=== PATIENT | male | born 1970 | race Caucasian/White ===

== ENCOUNTER 2017-07-22 04:12 | Emergency (ER) | payer SELFPAY ==
[2017-07-22] MEDS ORDERED: SULFAMETHOXAZOLE/TRIMETHOPRIM 800-160 MG TABLET PO ONE (05:35)
--- NOTE | 2017-07-22 05:37 | ER Document Report ---
HPI - HPI Patient complains to provider of: Bug bite Pain Level: 1 Context: Patient is a 47-year-old male presents emergency department complaining of a bug bite on left anterior thigh that is noticed over the past 3 days. Patient states that after he got off work today there was redness with mild streaking up his thigh. He denies any pain with movement but admits to tenderness to touch. States it is warm and red and has not drained any pus. States that he did pick at it a couple of days ago to try to drain it but nothing came out. States he has been doing warm compresses as often as he can throughout the day. Admits to allergy to amoxicillin. Denies any previous history of abscess or MRSA Past Medical History - Social History Smoking Status: Current Every Day Smoker Family History: Reviewed & Not Pertinent - Immunizations Hx Diphtheria, Pertussis, Tetanus Vaccination: Yes Vertical Provider Document - CONSTITUTIONAL Agree With Documented VS: Yes Notes: PHYSICAL EXAM GENERAL: Alert, interacts well. LUNGS: Clear to auscultation bilaterally, no wheezes, rales, or rhonchi. No respiratory distress. HEART: Regular rate and rhythm. No murmurs, gallops, or rubs. ABDOMEN: Soft, nondistended, nontender. No guarding, rebound, or rigidity.. Bowel sounds present in all 4 quadrants. EXTREMITIES: Moves all 4 extremities spontaneously. No edema, radial and dorsalis pedis pulses 2/4 bilaterally. No cyanosis. NEUROLOGICAL: Alert and oriented x4. Normal speech. PSYCH: Normal affect, normal mood. SKIN: Warm, dry, normal turgor. Erythematous area with central eschar noted on the left anterior thigh with surrounding induration less than 1 cm with surrounding erythema of approximately 8 cm in diameter with mild streaking measuring less than 2 cm of the medial thigh.Induration, purulent drainage, fluctuance. - INFECTION CONTROL TRAVEL OUTSIDE OF THE [place] IN LAST 30 DAYS: No Course - Re-evaluation Re-evalutation: 07/22/17 05:32 Patient is a 47-year-old male who is hemodynamically stable, no acute distress and afebrile. Presentation is consistent with a superficial cellulitis. Will initiate patient on p.o. antibiotics, site was marked using a skin marker, patient given strict return precautions otherwise to follow-up in 2-3 days for wound check. Discharge - Discharge Clinical Impression: Cellulitis Qualifiers: Site of cellulitis: extremity Site of cellulitis of extremity: lower extremity Laterality: left Qualified Code(s): L03.116 - Cellulitis of left lower limb Condition: Good Disposition: HOME, SELF-CARE Additional Instructions: Return to ED in 2-3 days for wound check. CELLULITIS: You have an infection of your skin and underlying soft tissues called cellulitis. This is due to bacteria, which can enter through any break in the skin, or even through an irritated hair follicle. Untreated, cellulitis will usually worsen. Antibiotics are required. Usually, warm packs or warm soaks, and elevation of the infected area are recommended. You should start getting better within 24 to 36 hours. Most infections respond quickly to the right medication. Follow-up care is important, however, to check for abscess (boil) formation, unsuspected foreign body, or resistant infection. If you develop fever, chills, or if the area of infection is becoming rapidly more swollen or painful, call the doctor at once. ANTIBIOTIC THERAPY: You have been given an antibiotic prescription. It's important that you take all the medication, unless instructed otherwise by your physician. Failure to complete the entire course can result in relapse of your condition. Common side effects of antibiotics include nausea, intestinal cramping, or diarrhea. Women may develop vaginal yeast infections, and babies can get yeast (thrush) in the mouth following the use of antibiotics. Contact your physician if you develop significant side effects from this medication. Allergy to this antibiotic can result in hives, wheezing, faintness, or itching. If symptoms of allergy occur, stop the medication and call the doctor. TRIMETHOPRIM-SULFA: You have been given a prescription for trimethoprim-sulfa (TMS, Septra, Bactrim). This is a combination antibiotic of the sulfa class, often used for urinary tract infections, middle ear infections, bronchitis, shigella intestinal infection, and Pneumocystis pneumonia. TMS is usually well-tolerated. Occasional side effects include nausea and decreased appetite. Septra is not recommended for infants less than two months of age. Do not take this medication if you have experienced severe side effects or allergy to sulfa medicine. You should stop this medicine at once and contact your physician if you develop any rash, joint pain, shortness of breath, bruising, or jaundice ( yellow color in the skin), or if you develop any other new or unusual symptoms. FOLLOW-UP CARE: If you have been referred to a physician for follow-up care, call the physician s office for an appointment as you were instructed or within the next two days. If you experience worsening or a significant change in your symptoms, notify the physician immediately or return to the Emergency Department at any time for re-evaluation. Prescriptions: Sulfamethoxazole/Trimethoprim [Bactrim Ds Tablet] 1 each PO BID #10 tablet
== END 2017-07-22 05:50 | disposition home or self-care (01) ==
LOC: ER 04:12
DX: S70.362A Insect bite (nonvenomous), left thigh, initial encounter (principal); L03.116 Cellulitis of left lower limb; W57.XXXA Bitten or stung by nonvenomous insect and other nonvenomous arthropods, initial encounter; Z88.0 Allergy status to penicillin; F17.200 Nicotine dependence, unspecified, uncomplicated
CPT/HCPCS: 99281

== ENCOUNTER 2017-07-29 01:39 | Emergency (ER) | payer SELFPAY ==
[2017-07-29 01:52] VITALS: BP 164/93
--- NOTE | 2017-07-29 03:35 | ER Document Report ---
HPI - HPI Patient complains to provider of: left anterior thigh abscess Onset: Last week Onset/Duration: Persistent Pain Level: 1 Context: 47 yo male with abscess anterior mid left thigh for over a week, finished the antibiotics and the red area has decreased in size but he is out of the antibiotic. No fever. Associated Symptoms: Body/muscle aches Exacerbated by: Denies Relieved by: Denies Similar symptoms previously: Yes Recently seen / treated by doctor: Yes - ROS ROS below otherwise negative: Yes Systems Reviewed and Negative: Yes All other systems reviewed and negative Past Medical History - General Information source: Patient - Social History Smoking Status: Current Every Day Smoker Frequency of alcohol use: None Drug Abuse: None Lives with: Family Family History: Reviewed & Not Pertinent Renal/ Medical History: Denies: Hx Peritoneal Dialysis Skin Medical History: Reports Hx MRSA Surgical Hx: Negative - Immunizations Hx Diphtheria, Pertussis, Tetanus Vaccination: Yes Vertical Provider Document - CONSTITUTIONAL Agree With Documented VS: Yes Exam Limitations: No Limitations General Appearance: No Apparent Distress - INFECTION CONTROL TRAVEL OUTSIDE OF THE [place] IN LAST 30 DAYS: No - RESPIRATORY O2 Sat by Pulse Oximetry: 100 - MUSCULOSKELETAL/EXTREMETIES Musculoskeletal/Extremeties: MAEW, FROM - NEURO Level of Consciousness: Awake, Alert - DERM Integumentary: Abscess - 3 mm scabbed center of 1.5 cm abscess left anterior thigh Course - Vital Signs Vital signs: Temp Pulse Resp BP Pulse Ox 98.2 F 88 16 164/93 H 100 07/29/17 01:49 07/29/17 01:49 07/29/17 01:49 07/29/17 01:49 07/29/17 01:49 Procedures - Incision and Drainage Left Thigh Time completed: 04:50 Type: Simple Anesthetic type: 1% Lidocaine mL's of anesthetic: 3 Blade size: 11 I&D procedure: Betadine prep applied Incision Method: Incision made by scalpel - deroofed the devitalized center, irrigated to get pus and devitalized tissue out, corner of gauze packing. Discharge - Discharge Clinical Impression: I and D left thigh abscess Condition: Good Disposition: HOME, SELF-CARE Instructions: Abscess ([facility]), Soap Cleansing ([facility]), Trimethoprim-Sulfa ([facility]) Additional Instructions: wash vigorously with antibacterial soap washclothe, rinse well dry dressing cintinue the antibiotics warm compress to ER if not continuing to improve Prescriptions: Sulfamethoxazole/Trimethoprim [Sulfamethoxazole-Tmp Ds Tablet] 1 each PO BID # 14 tablet
[2017-07-29] MEDS ORDERED: SULFAMETHOXAZOLE/TRIMETHOPRIM 800-160 MG TABLET PO ONE (04:29)
[2017-07-29] MEDS ORDERED: ACETAMINOPHEN 325 MG TABLET PO ONE (04:29)
[2017-07-29] MEDS ORDERED: ONDANSETRON 4 MG TAB.RAPDIS PO ONE (04:29)
== END 2017-07-29 05:09 | disposition home or self-care (01) ==
LOC: ER 01:39
PROC: 0H9JXZZ Drainage of Left Upper Leg Skin, External Approach (ICD-10-PCS; principal; 2017-07-29)
DX: L02.416 Cutaneous abscess of left lower limb (principal); F17.200 Nicotine dependence, unspecified, uncomplicated; Z86.14 Personal history of Methicillin resistant Staphylococcus aureus infection
CPT/HCPCS: 99283; 10060; S0119

== ENCOUNTER 2017-09-23 03:09 | Emergency (ER) | payer SELFPAY ==
[2017-09-23 03:28] VITALS: BP 162/94
[2017-09-23] MEDS ORDERED: SULFAMETHOXAZOLE/TRIMETHOPRIM 800-160 MG TABLET PO ONE (05:16)
[2017-09-23] MEDS ORDERED: CLINDAMYCIN HCL 150 MG CAPSULE PO ONE (05:16)
--- NOTE | 2017-09-23 05:20 | ER Document Report ---
ED General - General Chief Complaint: Skin Problem Stated Complaint: ABSCESS Time Seen by Provider: 09/23/17 05:16 Notes: Patient is 47-year-old male with a history of staph infections. He presents with a small area just over the suprapubic region that he says starts to have infected hair follicle. It then grown in size. Says it has some strain. He said there is still some redness there and therefore is come to the ER. He has been using antibiotic ointment as well as a Band-Aid over the area. He is currently not on any other medications for this. No other complaints at this time. TRAVEL OUTSIDE OF THE [place] IN LAST 30 DAYS: No - Related Data Allergies/Adverse Reactions: amoxicillin [Amoxicillin] Adverse Reaction (Unknown, Verified 12/04/11 00:35) Past Medical History - Social History Smoking Status: Current Every Day Smoker Frequency of alcohol use: Occasional Drug Abuse: None Family History: Reviewed & Not Pertinent Patient has suicidal ideation: No Patient has homicidal ideation: No Renal/ Medical History: Denies: Hx Peritoneal Dialysis Skin Medical History: Reports Hx MRSA - Immunizations Hx Diphtheria, Pertussis, Tetanus Vaccination: Yes Review of Systems - Review of Systems Notes: My Normal Review Basic REVIEW OF SYSTEMS: CONSTITUTIONAL : Denies fever, chills, or sweats. Denies recent illness. RESPIRATORY: Denies cough, cold, or chest congestion. Denies shortness of breath, difficulty breathing, or wheezing. GASTROINTESTINAL: Denies abdominal pain. Denies nausea, vomiting, or diarrhea. Denies constipation. Last BM: GENITOURINARY: Denies difficulty urinating, painful urination, burning, frequency, or blood in urine. SKIN: Infected hair follicle suprapubic region. NEUROLOGICAL: Denies altered mental status or loss of consciousness. ALL OTHER SYSTEMS REVIEWED AND NEGATIVE. Physical Exam - Vital signs Vitals: Temp Pulse Resp BP Pulse Ox 97.3 F 87 14 162/94 H 98 09/23/17 03:26 09/23/17 03:26 09/23/17 03:26 09/23/17 03:26 09/23/17 03:26 - Notes Notes: General Appearance: Well nourished, alert, cooperative, no acute distress, no obvious discomfort. Well appearing. Vitals: reviewed, See vital signs table. Abdomen: Normal BS, soft, No rigidity, No abdominal tenderness, No guarding, no rebound, small localized 3 cm area of erythema. No cysts extending fluctuance. No drainable abscess at this time. There is a ulceration and skin from where looks like recent abscess has self drained. Erythema is localized to the indurated area. Tenderness to palpation only at the localized area. No surrounding crepitance or spreading tenderness. Genital: No redness or swelling spreading towards the genitalia. Neuro: speech clear, oriented x 3, normal affect, responds appropriately to questions. Course - Re-evaluation Re-evalutation: 09/23/17 07:05 Patient will be discharged home. This patient on antibiotics. He does have a history of recurrent strep infections. I will place him on double coverage for staph as well as coverage for strep. I placed him on clindamycin and Bactrim. Reasonable coverage because patient has history of recurrent staph infections and we have had some resistance to both medications. Patient encouraged to return to ER if there is any spreading redness or swelling of he feels unwell. Patient agrees with plan will be discharged home. Dictation of this chart was performed using voice recognition software; therefore, there may be some unintended grammatical errors. - Vital Signs Vital signs: Temp Pulse Resp BP Pulse Ox 97.3 F 87 14 162/94 H 98 09/23/17 03:26 09/23/17 03:26 09/23/17 03:26 09/23/17 03:26 09/23/17 03:26 Discharge - Discharge Clinical Impression: Cellulitis Qualifiers: Site of cellulitis: trunk Site of cellulitis of trunk: unspecified site Qualified Code(s): L03.319 - Cellulitis of trunk, unspecified Condition: Good Disposition: HOME, SELF-CARE Additional Instructions: Please take the antibiotics as prescribed. Continue to keep the area clean. Please return to the ER immediately if you have spreading redness, increasing swelling, fevers, or increasing pain in the affected area. Follow up with a doctor in in 2-3 days for reevaluation. Stop the antibiotics and return to the ER if you develop a rash or diarrhea. Prescriptions: Clindamycin HCl 300 mg PO ASDIR #56 capsule Sulfamethoxazole/Trimethoprim [Bactrim Ds Tablet] 1 each PO BID #14 tablet
== END 2017-09-23 05:31 | disposition home or self-care (01) ==
LOC: ER 03:09
DX: L03.319 Cellulitis of trunk, unspecified (principal); F17.200 Nicotine dependence, unspecified, uncomplicated; Z86.14 Personal history of Methicillin resistant Staphylococcus aureus infection; Z88.0 Allergy status to penicillin
CPT/HCPCS: 99283

== ENCOUNTER 2020-03-21 10:22 | Emergency (ER) | payer SELFPAY ==
[2020-03-21] MEDS ORDERED: TETRACAINE HCL 0.5% OPH SOLN 4 ML OD ONE (10:31)
--- NOTE | 2020-03-21 10:32 | ER Document Report ---
HPI - HPI Time Seen by Provider: 03/21/20 10:28 Context: Patient is a 50-year-old male who presents emergency department with a chief complaint of right eye redness. Patient states that this morning he noticed his eye was red. Yesterday he was working out normal yard and sneezed about 15 leah es. States that he was rubbing his eyes just a little bit.Patient has a history of allergies. Does not take any medications. 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 Denies any change in vision. - ROS Systems Reviewed and Negative: Yes All other systems reviewed and negative - EENT EENT: REPORTS: Eye problems - Right eye redness. DENIES: Sore Throat, Ear Pain, Nasal Drainage-Clear - CARDIOVASCULAR Cardiovascular: DENIES: Chest pain - RESPIRATORY Respiratory: DENIES: Trouble Breathing, Coughing - GASTROINTESTINAL Gastrointestinal: DENIES: Abdominal Pain, Nausea, Patient vomiting - DERM Skin Color: Normal Skin Problems: None Past Medical History - General Information source: Patient - Social History Smoking Status: Current Every Day Smoker Family History: Reviewed & Not Pertinent Renal/ Medical History: Denies: Hx Peritoneal Dialysis Skin Medical History: Reports Hx MRSA - Immunizations Hx Diphtheria, Pertussis, Tetanus Vaccination: Yes Vertical Provider Document - CONSTITUTIONAL Agree With Documented VS: Yes Exam Limitations: No Limitations General Appearance: No Apparent Distress - INFECTION CONTROL TRAVEL OUTSIDE OF THE [place] IN LAST 30 DAYS: No - HEENT HEENT: Atraumatic, Conjuctival Injection - Right medial eye, Normocephalic, PERRLA - NECK Neck: Normal Inspection - RESPIRATORY Respiratory: Breath Sounds Normal, No Respiratory Distress - CARDIOVASCULAR Cardiovascular: Regular Rate, Regular Rhythm Pulses: Normal: Radial - MUSCULOSKELETAL/EXTREMETIES Musculoskeletal/Extremeties: FROM - NEURO Level of Consciousness: Awake, Alert, Appropriate Motor/Sensory: No Motor Deficit, No Sensory Deficit - DERM Integumentary: Warm, Dry, No Rash Course - Re-evaluation Re-evalutation: 03/21/20 11:35 Eye exam done with Manuel lamp. Patient does have corneal irritation noted to his right eye. Negative Rajesh sign. I have a low suspicion for acute angle glaucoma. Patient denies any pain. No globe rupture noted. Patient will be started on Polytrim eyedrops. Follow-up precautions were given. Verbal discharge instructions were given to the patient. They verbalized understanding. They are stable for discharge. - Vital Signs Vital signs: Temp Pulse Resp BP Pulse Ox 97.4 F 80 20 167/94 H 100 03/21/20 10:26 03/21/20 10:26 03/21/20 10:26 03/21/20 10:03/21/20 10:26 Discharge - Discharge Clinical Impression: Redness of right eye, Corneal irritation of right eye Condition: Stable Disposition: HOME, SELF-CARE Instructions: Eyedrop Use ([facility]) Additional Instructions: You were seen today in the emergency department for right eye redness. You have irritation to your eye noted on the Manuel lamp exam. Use the eyedrops. Place 1 drop to your right eye 4 times a day for 7 days. You also have a blood vessel that ruptured in your eye. This will go away over time. Follow-up with ophthalmology as needed. Take [id number] cetirizine/Zyrtec prior to doing any yard work to prevent allergies. Referrals: MARION THOMPSON MD [ACTIVE STAFF] - Follow up as needed
[2020-03-21] MEDS ORDERED: POLYMYXIN B SULFATE/TMP OPH SOLN (10 ML/ER DISP) OD ONE (11:35)
[2020-03-21 11:47] VITALS: BP 148/99
== END 2020-03-21 12:09 | disposition home or self-care (01) ==
LOC: ER 10:22
DX: H57.9 Unspecified disorder of eye and adnexa (principal); H18.891 Other specified disorders of cornea, right eye
CPT/HCPCS: 99283; J3490 ×2